=== PATIENT | male | born 1960 | race Caucasian/White ===

== ENCOUNTER 2021-03-29 10:05 | Outpatient (CLI) | payer OTHER ==
[2021-03-29 20:43] LABS: SARS-CoV-2 PCR by NAA Not Detected (NotDetected)
== END 2021-03-29 10:06 | disposition home or self-care (01) ==
LOC: CSHLAB 10:05
PROVIDERS: ATTEND Internal Medicine Critical Care Medicine
DX: Z20.822 Contact with and (suspected) exposure to COVID-19 (principal); J84.10 Pulmonary fibrosis, unspecified
CPT/HCPCS: 87635; U0003; U0005

== ENCOUNTER 2024-10-25 12:08 | Outpatient (CLI) | payer OTHER | END 2024-10-25 12:09 | disposition home or self-care (01) | LOC: CSHCP 12:08 | PROVIDERS: ATTEND Internal Medicine Critical Care Medicine | DX: M35.9 Systemic involvement of connective tissue, unspecified (principal); R94.2 Abnormal results of pulmonary function studies | CPT/HCPCS: 94010; 94726; 94729; 94760 ==